=== PATIENT | female | born 1935 ===

== ENCOUNTER 2022-02-22 14:14 | Emergency (ER) | payer MEDICARE, OTHER ==
[2022-02-22 15:30] VITALS: TEMP 98.7
[2022-02-22] MEDS ORDERED: ONDANSETRON 4 MG/2 ML VIAL IVP STA (18:20)
[2022-02-22] MEDS ORDERED: SODIUM CHLORIDE 0.9% 1,000 ML IV STA (18:20)
[2022-02-22] MEDS ORDERED: DICYCLOMINE 20 MG TAB PO STA (18:21)
[2022-02-22 19:05] LABS: Albumin 4.4 g/dL (3.5-5.0); Calcium 8.8 mg/dL (8.4-10.2); Total Bilirubin 0.8 mg/dL (0.2-1.3); Total Protein 6.8 g/dL (6.3-8.2)
[2022-02-22 19:10] LABS: Potassium 5.5 mmol/L (3.5-5.1)
[2022-02-22 19:15] LABS: Appearance,Urine Cloudy (Clear); Bacteria,Urine Moderate /hpf; Bilirubin,Urine Negative (Negative); Blood,Urine Negative (Negative); Color,Urine Yellow; Glucose,Urine (UA) Negative (Negative); Hyaline Casts,Urine 1 /lpf (0-2); Ketones,Urine 2+ (Negative); Leukocyte Esterase,Urine Negative (Negative); Mucus,Urine Moderate /hpf; Nitrite,Urine Negative (Negative); PH, Urine 5.5 (5.0-8.0); Protein,Urine 2+ (Negative); RBC,Urine <1 /hpf (0-5); Specific Gravity,Urine 1.027 (1.001-1.035); Squamous Epithelial Cell,Urine 4 /hpf (0-4); Urobilinogen,Urine <2.0 mg/dL (<2.0); WBC,Urine 2 /hpf (0-5)
--- NOTE | 2022-02-22 19:16 | XR ---
EXAMINATION TYPE: XR KUB DATE OF EXAM: 02/22/2022 7:10 PM CLINICAL HISTORY: Weakness, pain, diarrhea. COVID positive TECHNIQUE: Single Upright KUB images of the abdomen is obtained. COMPARISON: None. FINDINGS: Scattered gas is seen in nondistended small and large bowel loops. 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 Cholecystectomy clips are seen. There is large hiatal hernia or in trathoracic stomach. Mild cardiomegaly is present. Calcifications densities over the lower pelvis cou ld reflect phleboliths. Calcific densities over the right sacrum of uncertain etiology. No free air. IMPRESSION: Overall nonobstructive bowel gas pattern.
[2022-02-22 19:21] LABS: Basophils # (A) 0.1 k/uL (0-0.2); Basophils % (A) 1 %; Eosinophils % (A) 0 %; HCT 50.1 % (34.0-46.0); HGB 16.7 gm/dL (11.4-16.0); Lymphocytes # (A) 2.1 k/uL (1.0-4.8); Lymphocytes % (A) 30 %; MCH 28.3 pg (25.0-35.0); MCHC 33.4 g/dL (31.0-37.0); MCV 84.7 fL (80.0-100.0); Mean Platelet Volume 8.7; Monocytes # (A) 0.5 k/uL (0-1.0); Monocytes % (A) 7 %; Neutrophils # (A) 4.2 k/uL (1.3-7.7); Neutrophils % (A) 60 %; Platelet Count 169 k/uL (150-450); RBC 5.91 m/uL (3.80-5.40); RDW 14.4 % (11.5-15.5); WBC 7.1 k/uL (3.8-10.6)
[2022-02-22 19:42] VITALS: RESP 17
--- NOTE | 2022-02-22 19:43 | ED ---
General Adult HPI - General Chief complaint: Nausea/Vomiting/Diarrhea Stated complaint: Covid + wants antibody Time Seen by Provider: 02/22/22 18:05 Source: patient, RN notes reviewed, old records reviewed Mode of arrival: ambulatory - History of Present Illness Initial comments: Patient is an 86-year-old female with past medical history remarkable for essential tremor was diagnosed with Covid today. She was not vaccinated. Already received a prescription for Paxil bid. She has been having nausea with minimal emesis. No productive cough. No fevers. Primary symptom has been diarrhea. Was sent from urgent care to be evaluated for dehydration for diarrhea. Denies any urinary complaints. Denies any dysuria or hematuria. Appears anxious. Has been tolerating oral intake. Presents for further evaluation at this time. Denies any abdominal pain. Denies chest pain or shortness of breath.It is currently day 4 of symptoms. - Related Data Previous Rx's Medication Instructions Recorded Loperamide [Imodium] 2 mg PO TID PRN 7 Days #21 capsule 02/22/22 Allergies Allergy/AdvReac Type Severity Reaction Status Date / Time No Known Allergies Allergy Verified 02/22/22 15:30 Review of Systems ROS Statement: Those systems with pertinent positive or pertinent negative responses have been documented in the HPI. Review of Systems: CONST: Denies fever EYES: Denies blurry vision ENT: Denies nasal congestion C/V: Denies Chest pain RESP: Denies shortness of breath GI: Endorses diarrhea : Denies dysuria SKIN: Denies rash. MSK: Denies joint pain. NEURO: Denies headache ROS Other: All systems not noted in ROS Statement are negative. Past Medical History Past Medical History: No Reported History Additional Past Medical History / Comment(s): atrophic vaginitis. tremors History of Any Multi-Drug Resistant Organisms: None Reported Past Surgical History: Adenoidectomy, Appendectomy, Cholecystectomy, Tonsillectomy Past Psychological History: No Psychological Hx Reported Smoking Status: Never smoker Past Alcohol Use History: None Reported Past Drug Use History: None Reported General Exam - General Exam Comments Initial Comments: General: Appears in no acute distress. HEAD: Normal with no signs of head trauma. EYES: PERRLA, EOMI, conjunctiva normal, no discharge. ENT: Hearing grossly intact, normal oropharynx. RESPIRATORY: Clear breath sounds bilaterally. No wheezes, rales, or rhonchi. C/V: Regular rate and rhythm. S1 and S2 auscultated, no edema, peripheral pulses 2+ and intact throughout ABD: Abd is soft, nontender, nondistended EXT: Normal range of motion, no obvious deformity SKIN: No rashes or lesions observed on exposed skin. NEURO: Alert and oriented x 4. Course Vital Signs 02/22/22 02/22/22 15:11 19:30 Temperature 98.7 F Pulse Rate 117 H 75 Respiratory 18 17 Rate Blood Pressure 142/83 132/76 O2 Sat by Pulse 94 L 98 Oximetry Medical Decision Making - Medical Decision Making Based on the patient's presentation and physical exam, I did recommend that we obtain basic labs to ensure she is not dehydrated. She was in agreement this plan. She already has a paxlovid prescription. Vital Signs are remarkable for mild tachycardia in triage. We'll continue to monitor while she is here. She'll be given a 1 L fluid bolus and we'll obtain basic labs. She was in agreement this plan. Laboratory studies were remarkable for signs of dehydration including elevated hemoglobin of 16.7. Patient has a hemolyzed potassium of 5.5. Remainder the labs are unremarkable. Urinalysis is a contaminated catch. KUB x-ray as interpreted by myself shows no acute intra-abdominal process. No obstruction. Gas is present. Bowels nondistended.We will repeat patient's potassium as it is hemolyzed. She was in agreement this plan. Repeat potassium is within normal limits. I reevaluated the patient she is feeling improved. Vital signs are within acceptable limits. Heart rate has improved. I discussed results with the patient, I believe is safer to be discharged home. She was in agreement with this plan. She'll be given a prescription for Imodium. We stressed the importance of good hydration. Patient was in agreement with this plan. I did discuss with the patient that she should remain isolated for at least 5 days after symptom onset, which will be Saturday. She was in agreement this plan. She'll return with any worsening symptoms or concern for dehydration. We discussed obtaining a pulse oximeter to monitor her oxygenation levels. I will provide the patient with a prescription for Imodium. I instructed the patient to follow up with their PCP in the next 1-3 days. I explained that the patient should return to the emergency department if they experience any worsening symptoms. Strict return precautions were discussed with the patient. The patient expressed understanding of these instructions. I answered all questions that the patient had. The patient was discharged home in good condit ion with their prescriptions and follow up information. - Lab Data Result diagrams: 02/22/22 18:44 02/22/22 19:30 Lab Results 02/22/22 02/22/22 02/22/22 Range/Units 18:44 18:44 18:52 WBC 7.1 (3.8-10.6) k/uL RBC 5.91 H (3.80-5.40) m/uL Hgb 16.7 H (11.4-16.0) gm/dL Hct 50.1 H (34.0-46.0) % MCV 84.7 (80.0-100.0) fL MCH 28.3 (25.0-35.0) pg MCHC 33.4 (31.0-37.0) g/dL RDW 14.4 (11.5-15.5) % Plt Count 169 (150-450) k/uL MPV 8.7 Neutrophils % 60 % Lymphocytes % 30 % Monocytes % 7 % Eosinophils % 0 % Basophils % 1 % Neutrophils # 4.2 (1.3-7.7) k/uL Lymphocytes # 2.1 (1.0-4.8) k/uL Monocytes # 0.5 (0-1.0) k/uL Eosinophils # 0.0 (0-0.7) k/uL Basophils # 0.1 (0-0.2) k/uL Sodium 134 L (137-145) mmol/L Potassium 5.5 H (3.5-5.1) mmol/L Chloride 106 (98-107) mmol/L Carbon Dioxide 20 L (22-30) mmol/L Anion Gap 8 mmol/L BUN 22 H (7-17) mg/dL Creatinine 0.77 (0.52-1.04) mg/dL Est GFR (CKD-EPI)AfAm 80 (>60 ml/min/1.73 sqM) Est GFR (CKD-EPI)NonAf 70 (>60 ml/min/1.73 sqM) Glucose 77 (74-99) mg/dL Calcium 8.8 (8.4-10.2) mg/dL Total Bilirubin 0.8 (0.2-1.3) mg/dL AST 79 H (14-36) U/L ALT 45 H (4-34) U/L Alkaline Phosphatase 66 (38-126) U/L Total Protein 6.8 (6.3-8.2) g/dL Albumin 4.4 (3.5-5.0) g/dL Urine Color Yellow Urine Appearance Cloudy H (Clear) Urine pH 5.5 (5.0-8.0) Ur Specific [place] 1.027 (1.001-1.035) Urine Protein 2+ H (Negative) Urine Glucose (UA) Negative (Negative) Urine Ketones 2+ H (Negative) Urine Blood Negative (Negative) Urine Nitrite Negative (Negative) Urine Bilirubin Negative (Negative) Urine Urobilinogen <2.0 (<2.0) mg/dL Ur Leukocyte Esterase Negative (Negative) Urine RBC <1 (0-5) /hpf Urine WBC 2 (0-5) /hpf Ur Squamous Epith Cells 4 (0-4) /hpf Urine Bacteria Moderate H (None) /hpf Hyaline Casts 1 (0-2) /lpf Urine Mucus Moderate H (None) /hpf 02/22/ Range/Units 19:30 WBC (3.8-10.6) k/uL RBC (3.80-5.40) m/uL Hgb (11.4-16.0) gm/dL Hct (34.0-46.0) % MCV (80.0-100.0) fL MCH (25.0-35.0) pg MCHC (31.0-37.0) g/dL RDW (11.5-15.5) % Plt Count (150-450) k/uL MPV Neutrophils % % Lymphocytes % % Monocytes % % Eosinophils % % Basophils % % Neutrophils # (1.3-7.7) k/uL Lymphocytes # (1.0-4.8) k/uL Monocytes # (0-1.0) k/uL Eosinophils # (0-0.7) k/uL Basophils # (0-0.2) k/uL Sodium (137-145) mmol/L Potassium 3.8 (3.5-5.1) mmol/L Chloride (98-107) mmol/L Carbon Dioxide (22-30) mmol/L Anion Gap mmol/L BUN (7-17) mg/dL Creatinine (0.52-1.04) mg/dL Est GFR (CKD-EPI)AfAm (>60 ml/min/1.73 sqM) Est GFR (CKD-EPI)NonAf (>60 ml/min/1.73 sqM) Glucose (74-99) mg/dL Calcium (8.4-10.2) mg/dL Total Bilirubin (0.2-1.3) mg/dL AST (14-36) U/L ALT (4-34) U/L Alkaline Phosphatase (38-126) U/L Total Protein (6.3-8.2) g/dL Albumin (3.5-5.0) g/dL Urine Color Urine Appearance (Clear) Urine pH (5.0-8.0) Ur Specific [place] (1.001-1.035) Urine Protein (Negative) Urine Glucose (UA) (Negative) Urine Ketones (Negative) Urine Blood (Negative) Urine Nitrite (Negative) Urine Bilirubin (Negative) Urine Urobilinogen (<2.0) mg/dL Ur Leukocyte Esterase (Negative) Urine RBC (0-5) /hpf Urine WBC (0-5) /hpf Ur Squamous Epith Cells (0-4) /hpf Urine Bacteria (None) /hpf Hyaline Casts (0-2) /lpf Urine Mucus (None) /hpf Disposition Clinical Impression: Diarrhea, COVID-19 virus infection Disposition: HOME SELF-CARE Condition: Good Instructions (If sedation given, give patient instructions): Acute Diarrhea (ED), COVID-19 (Coronavirus Disease 2019) (ED) Prescriptions: Loperamide [Imodium] 2 mg PO TID PRN 7 Days #21 capsule PRN Reason: Diarrhea Is patient prescribed a controlled substance at d/c from ED?: No Referrals: Jigar Granger MD [Primary Care Provider] - 1-2 days Time of Disposition: 20:20
[2022-02-22 21:05] VITALS: BP 130/78; PULSE 67
== END 2022-02-22 21:05 | disposition home or self-care (01) ==
LOC: EC 14:14
DX: U07.1 COVID-19 (principal)
CPT/HCPCS: 36415; 80053; 84132; 85025; 81001; 74018; 99284; 96374; 96361; J2405

== ENCOUNTER → 2023-07-15 | Outpatient (CLI) | payer MEDICARE, OTHER ==
--- NOTE | 2023-07-15 17:28 | US ---
EXAMINATION TYPE: US venous doppler duplex LE LT DATE OF EXAM: 07/15/2023 5:03 PM COMPARISON: NONE CLINICAL INDICATION: Female, 87 years old with history of I80.9 PHLEBITIS AND THROMBOPHLEBITIS; throm bophlebitis, firm area of redness and pain mid medial calf SIDE PERFORMED: Left TECHNIQUE: The lower extremity deep venous system is examined utilizing real time linear array sonog adela with graded compression, doppler sonography and color-flow sonography. VESSELS IMAGED: Common Femoral Vein Deep Femoral Vein Greater Saphenous Vein * Femoral Vein Popliteal Vein Small Saphenous Vein * Proximal Calf Veins (* superficial vessels) Left Leg: Negative for DVT t superficial thrombophlebitis/thrombosed varicose veins in the area of patient's concern in the medi al left thigh. There is also SVT in the proximal gastroc veins Results called to office IMPRESSION: 1. No evidence for deep vein to most of the left lower ostomy. 2. Superficial thrombophlebitis and thrombosed varicose veins.
== END | disposition home or self-care (01) ==
LOC: RADUSWWP 16:38
PROVIDERS: ATTEND Internal Medicine
DX: I80.02 Phlebitis and thrombophlebitis of superficial vessels of left lower extremity (principal)